=== PATIENT | female | born 1955 | race Caucasian/White ===

== ENCOUNTER 2016-08-23 05:45 | Day surgery (SDC) | payer MEDICAID, MEDICARE ==
[~2016-08-23] VITALS: Ht 170.2 cm; Wt 102.5 kg
[2016-08-23] VITALS (11 sets, daily range): BP systolic 124–164; BP diastolic 63–95; PULSE 58–77; RESP 11–18; O2SAT 94–99
[~2016-08-23 05:45] MED LIST: LISI1TAB9 PO; PROP10TA8 PO; VENL75TA3 PO
[2016-08-23] MEDS ORDERED: fentaNYL-PF 50 mCg/mL 2 mL Inj ONE (05:46)
[2016-08-23] MEDS ORDERED: Succinylcholine Chloride 20 mg/mL 5 mL Inj ONE (05:46)
[2016-08-23] MEDS ORDERED: Propofol 10,000 mCg/mL 20 mL Inj ONE (05:46)
[2016-08-23] MEDS ORDERED: Lidocaine PF 1% 30 mL Inj ONE (05:46)
[2016-08-23] MEDS ORDERED: Dexamethasone 4 mg/mL Inj ONE (05:46)
[2016-08-23] MEDS ORDERED: Ondansetron 2 mg/mL 2 mL Inj ONE (05:46)
[2016-08-23] MEDS ORDERED: Lactated Ringer's 1,000 ML IV ONE ×2 (06:00→08:16)
[2016-08-23] MEDS ORDERED: CeFAZolin 2 Gm/50 mL D5W IV Premix IV ONE (06:00)
[2016-08-23] MEDS ORDERED: Lactated Ringer's 500 ML IV PRN (07:22)
[2016-08-23] MEDS ORDERED: Lactated Ringer's 1,000 ML IV SCH (07:22)
--- NOTE | 2016-08-23 07:22 | PCM.HPANE ---
Patient Data Surgeon Admitting Provider: Attending Provider:Yusra Cash MD Primary Care Physician:Sarina Metz MD Other Provider:[facility] Anest[facility] Reason for Visit Two Back Lipomas Ht/WT & BMI Height (Feet): 5 Height (Inches): 7.00 Weight (Kilograms): 102.500 Body Mass Index 35.00 Allergies Coded Allergies: morphine (Verified Allergy, Unknown, ITCHING FACE, 03/31/15) Past Anesthesia History Anesthesia History: Denies:: Anesthesia Reactions, Difficult Intubation, Fam Anesthesia Reaction Diabetes History Hx Diabetes?: No MRSA MRSA: No Medications Hypertension Medication: Yes Home Meds Incl Beta [place]: No Reported Medications Venlafaxine 75 Mg [id number] Mg PO BID Ref 0 08/20/16 Propranolol HCl 10 Mg [id number] Mg PO TID PRN tremors 90 Days Ref 0 08/20/16 Lisinopril / HCTZ 20-12.5 mg 1 Each Tablet1 Each PO DAILY Ref 0 08/20/16 Discontinued Reported Medications Propranolol HCl 20 Mg [id number] Mg PO DAILY #90 03/31/15 Lisinopril / HCTZ 20-12.5 mg 1 Each Tablet Po Daily #90 03/31/15 Venlafaxine 75 Mg Tablet #90 03/31/15 Discontinued Scripts Venlafaxine 75 Mg [id number] Mg PO TID #90 TABLET Ref 0 Prov:Martin Purcell DO 03/31/15 History History of ENT Problems?: Yes HEENT History: Positive for:: Cataracts (bilateral ) Sinus Problem (hx of sinus surgery ) Denies:: Difficult Intubation Dysphagia Glaucoma Hearing Problem TMJ Denture Type: Full- Upper Hx of Heart Problems?: Yes Cardiovascular History: Positive for:: Hypertension Denies:: Cardiac Surgery Chest Pain Congestive Heart Failure Edema Heart Murmur Irregular Heartbeat Pacemaker Thrombophlebitis Other History/Comments Greater than 4 mets. No CP Hx of Respiratory Problem?: Yes Respiratory History: Positive for:: Pneumonia (hx of just a few months ago, frequent bronchitis) Denies:: Asthma COPD Chest Surgery Dyspnea Emphysema Hemoptysis Oxygen Administration Tuberculosis Use of C-PAP Machine Use of Inhalers / NEBS Hx Neurologic Problems?: Yes Neurological History: Positive for:: Headaches (2-3 weekly) Denies:: Alzheimer's Disease CVA Dementia Dizziness Multiple Sclerosis Parkinson's Disease Seizures (benign essential tremor) Hx of GI Problems?: Yes Gastrointestinal History: Positive for:: Heartburn (several times weekly, not daily) Denies:: Diverticulitis Gall Bladder Disease Gastroesphageal Reflux Gastrointestinal Bleeding Hepatitis Hiatal Hernia Rectal Bleeding Hx of Problems?: Yes Genitourinary History: Positive for:: Kidney Stones (remote hx of, had surgery for) Denies:: HX of Hemodialysis Urinary Tract Infection HX of Peritoneal Dialysis: No Female Hx: Denies:: Currently (hysterectomy) Endometriosis Pelvic Inflammatory Problems with Breasts? Skin History: Denies:: History Skin Disorders? Pressure Ulcers Hx Musculoskeletal Problems?: Yes Musculoskeletal History: Positive for:: Back Injury (chronic daily pain, hx sciatica) Osteoarthritis Denies:: Fibromyalgia Joint Replacement Musculoskeletal Trauma Myasthenia Gravis Systemic Lupus Hx of Psycho/Social Problems?: Yes Psycho Social History: Positive for:: Bipolar Disorder Hx Depression Denies:: Anxiety Suicide Attempt Hx Surgeries?: Yes (Hysto, shoulder, ing. hernia, Carpel ke, sinus) Hx Any Other Health Problems?: Yes Other History: Positive for:: Hospitalization Denies:: Cancer Thyroid Disease History Blood Transfusions: Positive for:: Accept Blood Products? Denies:: Blood Transfuse Reaction Blood Transfusions Hx Diabetes: No Hx Alcohol Use: NoHx Substance Use: No Smoking Status: Current Every Day Smoker Have You Smoked inLast 12 mo: Yes Stop/Bang P-Blood Pressure: treated: Yes B- Body Mass Index > 35 kg/m2: No A- Age over 50: Yes N- Neck Large Circumference: No G- Gender Male: No Risk Assessment Category Category 1A: Patient has history of documented sleep apnea, and HAS NOT received any narcotic, sedative or anesthesia administration during this stay. Category 1B: Patient has history of documented sleep apnea, and HAS received any narcotic , sedative or anesthesia administration during this stay Category 2: Patient has SUSPECTED Obstructive Sleep Apnea, and HAS received any narcotic , sedative or anesthesia administration during this stay. Category 3: Patient has SUSPECTED Obstructive Sleep Apnea and HAS NOT received narcotic, sedative or anesthesia administration during this stay. Category 4: Outpatient in Procedural Areas with known sleep apnea or who screen positive for High Risk via the STOP/BANG questionnaire. Exam Exam Vital Signs Vital Signs Date Time Temp Pulse Resp B/P Pulse Ox O2 Delivery O2 Flow Rate FiO2 08/23/16 06:01 71 18 124/71 96 Room Air General Appearance: Alert, Oriented X3 HEENT/AIRWAY: MP 2, Neck Movement (FROM) Lungs: Clear to Auscultation, Clear to Percussion Heart: Exam Unremarkable, Regular Rate/Rhythm Meds/Labs/Diagnostics Admission Meds Current Medications Lactated Ringer's (Lr) 1,000 ml @ ud STK-MED ONCE IV Last administered on t 06:00; Start 08/23/16 at 06:00; Stop 08/23/16 at 06:01; Status DC Plan Impression Patient chart reviewed, patient interviewed and anesthestic plan with risks, benefits, and alternatives discussed, and informed consent obtained. NPO Status: 08/22@2100, sucker @ 2300, blue mouth ASA Physical Status: ASA2 Mod Systemic Disease Anesthetic Plan: GA Bene/Risks/Altern/Consents: Yes HP Complete Prior to Induction: Yes Vahe Bernabe MD Aug 23, 2016 07:07
[2016-08-23] MEDS ORDERED: Phenylephrine 10,000 mCg/mL Inj IVPUSH PRN (07:25)
[2016-08-23] MEDS ORDERED: EPHEDrine Sulfate 50 mg/mL Inj IVPUSH PRN (07:25)
[2016-08-23] MEDS ORDERED: Labetalol 5 mg/mL 4 mL Inj IV PRN (07:25)
[2016-08-23] MEDS ORDERED: Ondansetron 2 mg/mL 2 mL Inj IVPUSH PRN (07:25)
[2016-08-23] MEDS ORDERED: fentaNYL-PF 50 mCg/mL 2 mL Inj IVPUSH PRN (07:25)
[2016-08-23] MEDS ORDERED: MetoCLOpramide 5 mg/mL 2 mL Inj IVPUSH PRN (07:25)
[2016-08-23] MEDS ORDERED: Atropine 0.4 mg/mL Inj IVPUSH PRN (07:25)
[2016-08-23] MEDS ORDERED: Bupivacaine-MPF 0.5% 30 mL Inj INFILTRATE ONE (07:56)
[2016-08-23] MEDS ORDERED: POLY17PO6 PO (08:16)
[2016-08-23] MEDS ORDERED: HYDR-4003 PO (08:16)
[2016-08-23] MEDS ORDERED: Polyethylene Glycol (PEG) 17 Gm Powder PO SCH (08:30)
--- NOTE | 2016-08-23 08:46 | PCM.ANEP2 ---
Post Anesthesia Evaluation ASA/CMS Post Anesthesia VS in Patient's Normal Range?: Yes Resp Stable; Airway Patent?: Yes CV Function & Hydration Stable: Yes Mental Status Recovered?: Yes Pain control Satisfactory?: Yes N/V Control Satisfactory?: Yes Vahe Bernabe MD Aug 23, 2016 08:46
--- NOTE | 2016-08-23 08:46 | PCM.ANEP1 ---
Post Anesthesia Phase 1 PACU Phase 1 Assessment Vital Signs Vital Signs Date Time Temp Pulse Resp B/P Pulse Ox O2 Delivery O2 Flow Rate FiO2 08/23/16 08:39 71 18 155/79 98 Nasal Cannula 3 08/23/16 08:35 77 16 146/88 94 Nasal Cannula 4 08/23/16 08:30 73 12 136/76 96 Room Air 08/23/16 08:26 36.4 72 11 151/63 99 Simple Mask 8 08/23/16 06:01 71 18 124/71 96 Room Air Anesthetic Administered: GA Level of Alertness: Awake, talking MILLARD's with Equal Strength: Yes Pain: No Nausea or Vomiting: No Oxygen Delivery: Simple Mask Lungs: Clear to Auscultation, Clear to Percussion Vahe Bernabe MD Aug 23, 2016 08:46
[2016-08-23] MEDS: HYDROmorphone 1 mg/mL Inj IVPUSH PRN ×2 (09:01→09:06)
[2016-08-23] MEDS: HYDROcodone-APAP 5-325 mg Tablet PO PRN ×2 (09:30→10:42)
--- NOTE | 2016-08-23 09:47 | OP ---
[address] [address] OPERATIVE REPORT PATIENT: VICTOR M FOWLER : 1955 MR#: [id number] ADMIT: 08/23/2016 JOB ID: [id number] DATE OF SURGERY: 08/23/2016 PREOPERATIVE DIAGNOSIS(ES): Subcutaneous masses of the back. POSTOPERATIVE DIAGNOSIS(ES): Subcutaneous masses of the back. PROCEDURE PERFORMED: Excision of subcutaneous masses of the back, one on the right measuring close to 6 cm, the one on the left measuring closer to 0.5 cm. SURGEON: Yusra Cash MD INDICATIONS: The patient is a 61-year-old lady who noticed a soft swelling of her right forearm years ago. It never change. More recently, she has noticed other swellings, but a couple on her back have been causing pain, prompting her to come in and see me for removal. After discussing the risks, benefits, and alternatives, she is here today for the removal of the back masses. PROCEDURE DETAILS: She underwent smooth induction of general anesthesia and was placed in a prone position. All pressure points were adequately padded. The back was prepped and draped in the usual sterile fashion. Surgical time-out was undertaken using safety checklist, and all were in agreement. I began by infiltrating the right upper mass overlying skin with 0.5% bupivacaine and then made a skin incision and divided the skin sharply. I encountered multilobulated subcutaneous mass consistent with a benign lipoma which I excised with a combination of blunt and sharp dissection. The mass extended all the way to the muscle, but there was no evidence of extension deep to it. After removing the mass completely to normal-looking healthy subcutaneous fat and muscle, I obtained hemostasis and infiltrated the area with more 0.5% bupivacaine and proceeded to close it in layers of 3-0 Vicryl followed by 4-0 Monocryl. Then, I directed my attention to the mass on the left upper back pain and made a skin incision and excised a 2.5 cm fatty mass. Again, after ensuring good hemostasis, I closed the wound in layers with 3-0 Vicryl followed by 4-0 Monocryl. Steri-Strips and sterile dressing were applied. Patient was recovered from anesthesia, taken to the recovery room in a stable condition.
--- NOTE | 2016-08-25 16:26 | PATH ---
SURGICAL PATHOLOGY Attending Physician:Yusra Cash MD CASE STATUS: Signed Out PATIENT NAME: VICTOR M FOWLER PID: [id number] : 1955 DATE COLLECTED:08/23/2016 17:07 SPECIMEN: 1: Mass, NOS 2: Mass, NOS CLINICAL HISTORY: A: RIGHT UPPER BACK SUBCUTANEOUS MASS B: LEFT UPPER BACK SUBCUTANEOUS MASS FINAL DIAGNOSIS: 1.RIGHT UPPER BACK SUBCUTANEOUS MASS: LIPOMA. NO EVIDENCE OF MALIGNANCY. 2.LEFT UPPER BACK SUBCUTANEOUS MASS: LIPOMA. NO EVIDENCE OF MALIGNANCY. ICD10 CODE D17.9 GROSS DESCRIPTION: The specimens are received in formalin, labeled with the patient's name, and sublabeled as the following: (1) right upper back subcutaneous mass; (2) left upper back subcutaneous mass. (1) The specimen consists of multiple pieces of maharaj-yellow rubbery membranous adipose tissue (9.5 x 7.2 x 2.3 cm in aggregate). The exterior surface is smooth, shiny and flat. The cut surface is homogenous and unremarkable. Ink code: black-exterior. Section code: (1A, 1B) adipose tissue, serially sectioned, reimbursement representative. (2) The specimen consists of a piece of maharaj-yellow rubbery membranous adipose tissue (2.2 x 1.5 x 1.0 cm). The exterior surface is smooth, shiny and flat. The cut surface is homogenous and unremarkable. Ink code: black-exterior. Section code: (2A) adipose tissue, sooner section, reimbursement representative. 08/24/16 JM MICRO DESCRIPTION: See diagnosis. ICD-9 CODES: CPT CODES: 1: 21419 2: 29210 Electronically Signed Out Nitza Charles MD [facility] [address], [place] [address] Technical component performed at [facility], [address] [place] [address] Ave[address], [place], [address]
== END 2016-08-23 23:59 | disposition home or self-care (01) ==
LOC: SAS 05:45
PROVIDERS: ATTEND Student in an Organized Health Care Education/Training Program
DX: D17.1 Benign lipomatous neoplasm of skin and subcutaneous tissue of trunk (principal); I10 Essential (primary) hypertension; G25.0 Essential tremor; F32.9 Major depressive disorder, single episode, unspecified; E66.9 Obesity, unspecified; Z68.35 Body mass index [BMI] 35.0-35.9, adult; F17.210 Nicotine dependence, cigarettes, uncomplicated
CPT/HCPCS: 21930; 21933; J0330; J0690; J1100; J1170; J2405; J7120